=== PATIENT | female | born 2000 | race African-American/Black ===

== ENCOUNTER 2023-09-21 01:37 | Emergency (ER) | payer SELFPAY ==
[~2023-09-21] VITALS: Ht 170.2 cm; Wt 132.9 kg
[2023-09-21 01:43] VITALS: PULSE 82; RESP 18; TEMP 98.3
[2023-09-21] MEDS ORDERED: ONDANSETRON HCL 4 MG ORAL DISINTEGRATING TAB PO ONE (02:00)
[2023-09-21] MEDS: LACTATED RINGER'S 1,000 ML INJ ONE (02:29)
[2023-09-21] MEDS: ONDANSETRON HCL INJ 2MG/ML 2ML 2 MG/ML VIAL IV ONE (02:30)
[2023-09-21] MEDS ORDERED: MAALOX MAXIMUM355 ML PO (03:07)
[2023-09-21] MEDS ORDERED: FAMOTIDINE20 MG PO (03:07)
[2023-09-21] MEDS ORDERED: ONDANSETRON ODT4 MG PO (03:07)
[2023-09-21 03:14] VITALS: BP 145/81; PULSE 82; RESP 18; TEMP 98.3; O2SAT 97
[2023-09-26] MEDS ORDERED: IBUPROFEN200 MG PO (17:17)
[2023-09-26] MEDS ORDERED: DOXYCYCLINE HY100 MG PO (17:17)
== END 2023-09-21 03:14 | disposition home or self-care (01) ==
LOC: FSED 01:50
DX: K52.9 Noninfective gastroenteritis and colitis, unspecified (principal)
CPT/HCPCS: 74176; 80053; 81003; 81025; 85025; 96374; 99284; J2405; J7121